=== PATIENT | male | born 1970 | race Caucasian/White ===

== ENCOUNTER 2021-11-29 17:49 | Emergency (ER) | payer OTHER, SELFPAY ==
[2021-11-29] VITALS (25 sets, daily range): BP systolic 120–169; BP diastolic 65–99; PULSE 77–100; RESP 12–35; TEMP 31–36.3; O2SAT 74–99; BMI 48.8
--- NOTE | 2021-11-29 18:04 | DI.RAD.S_ITS ---
PROCEDURE: XR CHEST 1V INDICATIONS: shortness of breath TECHNIQUE: One view of the chest was acquired. COMPARISON: None. FINDINGS: Surgical changes and devices: None. Lungs and pleura: Lungs are clear. Left-sided pleural fluid collection noted. Consolidation noted in the left lung base. Cephalization of pulmonary vasculature. Mediastinum: Mediastinal contours appear normal. Heart is enlarged. Bones and chest wall: No suspicious bony lesions. Overlying soft tissues appear unremarkable. IMPRESSION: 1. CHF. 2. Left-sided pleural effusion. 3. Left basilar consolidation which could represent atelectasis, aspiration or pneumonia. Dictated by: Kate Rosario MD, PhD on 11/29/2021 at 18:35 Approved by: Kate Rosario MD, PhD on 11/29/2021 at 18:37
--- NOTE | 2021-11-29 18:22 | DI.CT.S_ITS ---
PROCEDURE: CT ANGIO CHEST PE PROTOCOL INDICATIONS: soa TECHNIQUE: After the administration of intravenous contrast, 2 mm thick sections acquired from the pulmonary apices to the posterior costophrenic angles. 3-dimensional maximum intensity projection (MIP) coronal and sagittal reformats were then acquired through the thorax. For radiation dose reduction, the following was used: automated exposure control, adjustment of mA and/or kV according to patient size. COMPARISON: None. FINDINGS: Image quality: Limited by suboptimal contrast opacification of the segmental and subsegmental pulmonary arteries and patient body habitus. Pulmonary arteries: Pulmonary arteries are normal in size, and demonstrate no intraluminal filling defects to suggest central pulmonary embolism. Lungs and pleura: Moderate-sized left-sided pleural effusion. Trace right-sided pleural effusion. Consolidation noted in the left lung base which could represent atelectasis, aspiration or pneumonia. No pneumothorax. Central and peripheral airways are patent. Mediastinum: Heart is enlarged without pericardial effusion. Enlarged bilateral hilar and mediastinal lymph nodes are noted which could be reactive or neoplastic. Thoracic aorta is normal in caliber and enhancement. Esophagus is normal in caliber, without hiatal hernia. Bones and chest wall: No suspicious bony lesions. Ribs and thoracic spine appear intact throughout. Spine degenerative disc disease and facet arthropathy. Thyroid gland is within normal limits where visualized bilateral prominent mildly enlarged axillary lymph nodes noted. Abdomen: Visualized liver has slightly nodular margins suggesting hepatic cirrhosis. Ascites noted in the upper abdomen. IMPRESSION: 1. Diagnostic sensitivity study limited secondary to suboptimal contrast opacification of the segmental and subsegmental pulmonary arteries and patient body habitus. 2. No large central pulmonary embolus. Small pulmonary emboli involving the segmental and subsegmental pulmonary arteries is not excluded by this study. 3. Moderate-sized left-sided pleural fluid collection. Trace right-sided pleural fluid collection. 4. Consolidation left lung base which could represent atelectasis, aspiration or pneumonia. 5. Bilateral axillary, mediastinal and bilateral hilar lymphadenopathy which could be reactive or neoplastic including lymphoma and metastatic disease. 6. Sized liver has slightly nodular margins suggesting hepatic cirrhosis. Recommend correlation with clinical and laboratory data. 7. Ascites. 8. Cardiomegaly. Dictated by: Kate Rosario MD, PhD on 11/29/2021 at 19:23 Approved by: Kate Rosario MD, PhD on 11/29/2021 at 19:29
--- NOTE | 2021-11-29 18:23 | ED.SOB ---
HPI - SOB/Dyspnea General Chief Complaint: Shortness of Breath/Dyspnea Stated Complaint: hx rib fractures, short of breath Time Seen by Provider: 11/29/21 18:19 Source: patient Mode of arrival: Wheelchair Limitations: no limitations History of Present Illness HPI Narrative: Patient here for shortness of breath. He states he fell 2 or 3 weeks ago and was seen at facility at [place]. X-ray showed left-sided rib fracture. Denies any fever chills. Has increasing shortness of breath since then. Denies any heart or lung problems. Patient hypoxic on arrival. Improved with oxygen supplement. Decreased lung sounds lower 2/3 of the left lung. Related Data Allergies Allergy/AdvReac Type Severity Reaction Status Date / Time Tetanus Vaccines and Toxoid Allergy Verified 11/29/21 17:57 Review of Systems Review of Systems Narrative: GENERAL: Denies chills, fatigue, malaise, fever, sweats. HEENT: Denies sinus pain, ear pain, sore throat RESPIRATORY: Positive for dyspnea, cough CARDIOVASCULAR: Denies chest pain, palpitations GASTROINTESTINAL: Denies nausea, vomiting, abdominal pain : Denies dysuria, frequency, hematuria MUSCULOSKELETAL: denies muscle or bony pain SKIN: Denies rash, skin lesions NEUROLOGIC: Denies weakness, numbness ROS Unobtainable: All systems reviewed & are unremarkable except as noted in HPI and below Patient History Social History Smoking Status: Unknown if ever smoked Smoking Status: Unknown if ever smoked alcohol intake frequency: 3 or more drinks per day Substance Use Type: does not use Exam Narrative Exam Narrative: GENERAL: In mild distress. He is tachypneic. Moderate dyspnea. Speaking near full sentences. Patient very large body habitus HEAD: Normocephalic. EYES: Pupils equal round No scleral icterus. ENT: Mucous membranes moist. NECK: Trachea midline. CARDIOVASCULAR: Regular rate and rhythm without murmurs, tachycardic. RESPIRATORY: Patient in moderate respiratory distress. Feels better with supplemental oxygen. Respiratory therapy at bedside. Diminish lung sounds lower 2/3 of the left lung. Tender to touch left lateral lower ribs. GASTROINTESTINAL: Abdomen soft, non-tender EXTREMITIES: No gross deformities. BACK: No flank tenderness. NEURO: AOx4. SKIN: Warm and dry, improved color with supplemental oxygen. PSYCH: Not anxious, is cooperative Initial Vital Signs Initial Vital Signs: Vital Signs Temperature 97.3 F L 11/29/21 17:57 Pulse Rate 100 H 11/29/21 17:57 Respiratory Rate 30 H 11/29/21 17:57 Blood Pressure 120/99 H 11/29/21 17:57 Pulse Oximetry 74 L 11/29/21 17:57 Course Course Course Narrative: No new issues during course of stay. Patient improving with BiPAP with repeat ABGs. Orders Ordered: ED Orders 11/29/21 20:45 Arterial Blood Gas Stat 11/29/21 23:42 Urinalysis and Microscopic Stat 11/30/21 00:29 Arterial Blood Gas Stat Discontinued Medications Furosemide (Furosemide 40 Mg/4 Ml Vial) 40 mg IV NOW ONE Stop: 11/29/21 22:00 Last Admin: 11/29/21 22:19 Dose: 40 mg Documented by: FIDENCIO Sodium Chloride (Normal Saline 0.9%) 500 mls @ 1,000 mls/hr IV BOLUS ONE Stop: 11/30/21 01:58 Last Infusion: 11/30/21 02:05 Dose: 0 mls/hr Documented by: Admin: 11/30/21 01:31 Dose: 1,000 mls/hr Documented by: OLIVIA Lidocaine HCl (Lidocaine 2% (Glydo) 6 Ml Gel) 6 ml TOP NOW ONE Stop: 11/29/21 23:17 Last Admin: 11/29/21 23:50 Dose: 6 ml Documented by: FIDENCIO Nicotine (Nicotine 21 Mg Patch) 21 mg TOP NOW ONE Stop: 11/30/21 00:39 Last Admin: 11/30/21 00:56 Dose: 21 mg Documented by: OLIVIA Reevaluation(s) Reevaluation #1: Patient tolerating BiPAP. Is arousable. Understands for transfer. Time: 22:04 Reevaluation #2: Patient improving with mentation with BiPAP. Repeat ABGs improving. Consultations Consultation #1: Spoke with [facility] in [place] Dr Siddiqui, powerplant operator. He will accept patient to their ICU. He request to give patient Lasix 40 mg IV. Time: 22:04 Vital Signs Vital signs: Vital Signs - 8 hr 11/29/21 21:30 11/29/21 22:00 11/29/21 22:30 Pulse Rate 83 84 78 Respiratory Rate 25 H 35 H 27 H Blood Pressure Pulse Oximetry 96 95 96 11/29/21 22:33 11/29/21 22:41 11/29/21 22:43 Pulse Rate 78 78 Respiratory Rate 23 Blood Pressure 134/85 122/73 122/73 Pulse Oximetry 96 11/29/21 23:00 11/29/21 23:30 11/29/21 23:43 Pulse Rate 80 83 81 Respiratory Rate 25 H 20 20 Blood Pressure 124/65 Pulse Oximetry 96 94 94 11/30/21 00:00 11/30/21 00:30 11/30/21 00:40 Pulse Rate 78 78 Respiratory Rate 20 21 Blood Pressure 113/68 118/65 118/65 Pulse Oximetry 97 97 11/30/21 01:00 11/30/21 01:30 11/30/21 02:00 Pulse Rate 78 77 78 Respiratory Rate 20 24 22 Blood Pressure 113/64 113/58 L Pulse Oximetry 97 98 97 MDM - SOB/Dyspnea Differential Diagnosis Differential diagnosis: Likely congestive heart failure, community acquired pneumonia, pulmonary embolism and other (Pleural effusion/pneumonia/pneumothorax) Lab Data Result diagrams: 11/29/21 18:15 11/29/21 18:15 Labs: Lab Results 11/29/21 11/29/21 11/29/21 Range/Units 18:09 18:15 18:15 WBC 10.8 (4.5-11.0) X10^3/uL RBC 5.63 (4.5-5.9) X10^6/uL Hgb 17.7 H (13.5-17.5) g/dL Hct 55.6 H (41-53) % MCV 98.7 (80-100) fL MCH 31.5 (26-34) PG MCHC 31.9 (30-36) % RDW 15.7 H (11.6-14.8) % Plt Count 178 (150-400) X10^3/uL Neut % (Auto) 58.4 (50-75) % Lymph % (Auto) 32.5 (25-40) % [place] % (Auto) 8.4 (3-14) % Eos % (Auto) 0.2 L (2-4) % Baso % (Auto) 0.5 (0-2) % Neut # (Auto) 6300 (3411-4590) /uL Lymph # (Auto) 3500 (8113-1360) /uL [place] # (Auto) 900 (0-900) /uL Eos # (Auto) 0 (0-450) /uL Baso # (Auto) 0 (0-100) /uL PT 14.5 H (10.1-12.7) SECONDS INR 1.3 (0.9-1.3) ABG pH (7.35-7.45) ABG pCO2 (35-45) mmHg ABG pO2 (80-100) mmHg ABG HCO3 (22-26) mmol/L ABG Total CO2 (21-31) mmol/L ABG O2 Saturation (95-100) % ABG Base Excess (-2-2) mmol/L FiO2 Sodium (137-145) mmol/L Potassium (3.4-5.1) mmol/L Chloride (98-107) mmol/L Carbon Dioxide (22-32) mmol/L BUN (9-20) mg/dL Creatinine (0.66-1.25) mg/dL Estimated GFR (>60) mL/min BUN/Creatinine Ratio (6-22) Glucose (70-100) mg/dL Lactate (0.7-2.1) mmol/L Calcium (8.4-10.2) mg/dL Total Bilirubin (0.2-1.3) mg/dL AST (17-59) IU/L ALT (<50) IU/L Alkaline Phosphatase (38-126) U/L Troponin I (0.01-0.034) ng/mL NT-Pro-B Natriuret Pep (<125) pg/mL Total Protein (6.3-8.2) g/dL Albumin (3.5-5.0) g/dL Globulin (1.7-4.1) g/dL Albumin/Globulin Ratio (1.0-2.8) Urine Color Urine Appearance Urine pH (4.5-8.0) Ur Specific [place] (1.000-1.035) Urine Protein (Negative) Urine Glucose (UA) (Negative) g/dL Urine Ketones (NEGATIVE) Urine Occult Blood (Negative) Urine Nitrate (Negative) Urine Bilirubin (NEGATIVE) Urine Urobilinogen (0.2) E.U./dL Ur Leukocyte Esterase (NEGATIVE) Urine RBC (0-5/HPF) Urine WBC (0-5/HPF) Ur Squamous Epith Cells (0-5/HPF) Urine Bacteria (None) Hyaline Casts (None) Urine Mucus (Negative) Ur Culture Indicated? SARS-CoV-2 (PCR) Negative (Negative) 11/29/21 11/29/21 11/29/21 Range/Units 18:15 18:15 18:15 WBC (4.5-11.0) X10^3/uL RBC (4.5-5.9) X10^6/uL Hgb (13.5-17.5) g/dL Hct (41-53) % MCV (80-100) fL MCH (26-34) PG MCHC (30-36) % RDW (11.6-14.8) % Plt Count (150-400) X10^3/uL Neut % (Auto) (50-75) % Lymph % (Auto) (25-40) % [place] % (Auto) (3-14) % Eos % (Auto) (2-4) % Baso % (Auto) (0-2) % Neut # (Auto) (5635-7482) /uL Lymph # (Auto) (5534-3297) /uL [place] # (Auto) (0-900) /uL Eos # (Auto) (0-450) /uL Baso # (Auto) (0-100) /uL PT (10.1-12.7) SECONDS INR (0.9-1.3) ABG pH (7.35-7.45) ABG pCO2 (35-45) mmHg ABG pO2 (80-100) mmHg ABG HCO3 (22-26) mmol/L ABG Total CO2 (21-31) mmol/L ABG O2 Saturation (95-100) % ABG Base Excess (-2-2) mmol/L FiO2 Sodium 133 L (137-145) mmol/L Potassium 5.6 H (3.4-5.1) mmol/L Chloride 93 L (98-107) mmol/L Carbon Dioxide 33 H (22-32) mmol/L BUN 87 H (9-20) mg/dL Creatinine 3.74 H (0.66-1.25) mg/dL Estimated GFR 17.2 L (>60) mL/min BUN/Creatinine Ratio 23.3 H (6-22) Glucose 172 H (70-100) mg/dL Lactate 1.7 (0.7-2.1) mmol/L Calcium 8.4 (8.4-10.2) mg/dL Total Bilirubin 1.0 (0.2-1.3) mg/dL AST 86 H (17-59) IU/L ALT 102 H (<50) IU/L Alkaline Phosphatase 100 (38-126) U/L Troponin I 0.048 H (0.01-0.034) ng/mL NT-Pro-B Natriuret Pep 4110 H (<125) pg/mL Total Protein 7.7 (6.3-8.2) g/dL Albumin 4.2 (3.5-5.0) g/dL Globulin 3.5 (1.7-4.1) g/dL Albumin/Globulin Ratio 1.2 (1.0-2.8) Urine Color Urine Appearance Urine pH (4.5-8.0) Ur Specific [place] (1.000-1.035) Urine Protein (Negative) Urine Glucose (UA) (Negative) g/dL Urine Ketones (NEGATIVE) Urine Occult Blood (Negative) Urine Nitrate (Negative) Urine Bilirubin (NEGATIVE) Urine Urobilinogen (0.2) E.U./dL Ur Leukocyte Esterase (NEGATIVE) Urine RBC (0-5/HPF) Urine WBC (0-5/HPF) Ur Squamous Epith Cells (0-5/HPF) Urine Bacteria (None) Hyaline Casts (None) Urine Mucus (Negative) Ur Culture Indicated? SARS-CoV-2 (PCR) (Negative) 11/29/21 11/29/21 11/29/21 Range/Units 18:38 20:45 23:42 WBC (4.5-11.0) X10^3/uL RBC (4.5-5.9) X10^6/uL Hgb (13.5-17.5) g/dL Hct (41-53) % MCV (80-100) fL MCH (26-34) PG MCHC (30-36) % RDW (11.6-14.8) % Plt Count (150-400) X10^3/uL Neut % (Auto) (50-75) % Lymph % (Auto) (25-40) % [place] % (Auto) (3-14) % Eos % (Auto) (2-4) % Baso % (Auto) (0-2) % Neut # (Auto) (3401-5713) /uL Lymph # (Auto) (5469-0926) /uL [place] # (Auto) (0-900) /uL Eos # (Auto) (0-450) /uL Baso # (Auto) (0-100) /uL PT (10.1-12.7) SECONDS INR (0.9-1.3) ABG pH 7.18 L* 7.21 L* (7.35-7.45) ABG pCO2 86.0 H* 82.9 H* (35-45) mmHg ABG pO2 86 87 (80-100) mmHg ABG HCO3 32 H 33 H (22-26) mmol/L ABG Total CO2 35 H 36 H (21-31) mmol/L ABG O2 Saturation 93 L 94 L (95-100) % ABG Base Excess 4.0 H 6.0 H (-2-2) mmol/L FiO2 50 50 Sodium (137-145) mmol/L Potassium (3.4-5.1) mmol/L Chloride (98-107) mmol/L Carbon Dioxide (22-32) mmol/L BUN (9-20) mg/dL Creatinine (0.66-1.25) mg/dL Estimated GFR (>60) mL/min BUN/Creatinine Ratio (6-22) Glucose (70-100) mg/dL Lactate (0.7-2.1) mmol/L Calcium (8.4-10.2) mg/dL Total Bilirubin (0.2-1.3) mg/dL AST (17-59) IU/L ALT (<50) IU/L Alkaline Phosphatase (38-126) U/L Troponin I (0.01-0.034) ng/mL NT-Pro-B Natriuret Pep (<125) pg/mL Total Protein (6.3-8.2) g/dL Albumin (3.5-5.0) g/dL Globulin (1.7-4.1) g/dL Albumin/Globulin Ratio (1.0-2.8) Urine Color Yellow Urine Appearance Clear Urine pH 5.0 (4.5-8.0) Ur Specific [place] 1.025 (1.000-1.035) Urine Protein 1+ H (Negative) Urine Glucose (UA) Trace H (Negative) g/dL Urine Ketones Negative (NEGATIVE) Urine Occult Blood 3+ H (Negative) Urine Nitrate Negative (Negative) Urine Bilirubin Negative (NEGATIVE) Urine Urobilinogen 1.0 (0.2) E.U./dL Ur Leukocyte Esterase Negative (NEGATIVE) Urine RBC 10-30/hpf H (0-5/HPF) Urine WBC 0-1/hpf (0-5/HPF) Ur Squamous Epith Cells 1-5 /hpf (0-5/HPF) Urine Bacteria Few (2-10) H (None) Hyaline Casts 0-1/lpf (None) Urine Mucus 1+ H (Negative) Ur Culture Indicated? Cult not indicated SARS-CoV-2 (PCR) (Negative) 11/30/21 Range/Units 00:29 WBC (4.5-11.0) X10^3/uL RBC (4.5-5.9) X10^6/uL Hgb (13.5-17.5) g/dL Hct (41-53) % MCV (80-100) fL MCH (26-34) PG MCHC (30-36) % RDW (11.6-14.8) % Plt Count (150-400) X10^3/uL Neut % (Auto) (50-75) % Lymph % (Auto) (25-40) % [place] % (Auto) (3-14) % Eos % (Auto) (2-4) % Baso % (Auto) (0-2) % Neut # (Auto) (6047-6259) /uL Lymph # (Auto) (6030-2228) /uL [place] # (Auto) (0-900) /uL Eos # (Auto) (0-450) /uL Baso # (Auto) (0-100) /uL PT (10.1-12.7) SECONDS INR (0.9-1.3) ABG pH 7.26 L* (7.35-7.45) ABG pCO2 75.3 H* (35-45) mmHg ABG pO2 85 (80-100) mmHg ABG HCO3 34 H (22-26) mmol/L ABG Total CO2 36 H (21-31) mmol/L ABG O2 Saturation 94 L (95-100) % ABG Base Excess 7.0 H (-2-2) mmol/L FiO2 50 Sodium (137-145) mmol/L Potassium (3.4-5.1) mmol/L Chloride (98-107) mmol/L Carbon Dioxide (22-32) mmol/L BUN (9-20) mg/dL Creatinine (0.66-1.25) mg/dL Estimated GFR (>60) mL/min BUN/Creatinine Ratio (6-22) Glucose (70-100) mg/dL Lactate (0.7-2.1) mmol/L Calcium (8.4-10.2) mg/dL Total Bilirubin (0.2-1.3) mg/dL AST (17-59) IU/L ALT (<50) IU/L Alkaline Phosphatase (38-126) U/L Troponin I (0.01-0.034) ng/mL NT-Pro-B Natriuret Pep (<125) pg/mL Total Protein (6.3-8.2) g/dL Albumin (3.5-5.0) g/dL Globulin (1.7-4.1) g/dL Albumin/Globulin Ratio (1.0-2.8) Urine Color Urine Appearance Urine pH (4.5-8.0) Ur Specific [place] (1.000-1.035) Urine Protein (Negative) Urine Glucose (UA) (Negative) g/dL Urine Ketones (NEGATIVE) Urine Occult Blood (Negative) Urine Nitrate (Negative) Urine Bilirubin (NEGATIVE) Urine Urobilinogen (0.2) E.U./dL Ur Leukocyte Esterase (NEGATIVE) Urine RBC (0-5/HPF) Urine WBC (0-5/HPF) Ur Squamous Epith Cells (0-5/HPF) Urine Bacteria (None) Hyaline Casts (None) Urine Mucus (Negative) Ur Culture Indicated? SARS-CoV-2 (PCR) (Negative) Imaging Data Chest x-ray: Radiologist's Impression: [address] [address] XRay Report Signed Patient: Corby Scott MR#: [id number] : 1970 Acct:[id number] Age/Sex: 51 / M Date of Service: 11/29/21 Loc: ED Accession Number: [id number] ?? Procedure: XR chest 1V Ordering Provider: Sahara Crowley D.O. PROCEDURE:? XR CHEST 1V ? INDICATIONS:? shortness of breath ? TECHNIQUE:? One view of the chest was acquired.? ? COMPARISON:? None. ? FINDINGS:? ? Surgical changes and devices:? None.? ? Lungs and pleura:? Lungs are clear.? Left-sided pleural fluid collection noted.? Consolidation noted in the left lung base.? Cephalization of pulmonary vasculature. ? Mediastinum:? Mediastinal contours appear normal.? Heart is enlarged. ? Bones and chest wall:? No suspicious bony lesions.? Overlying soft tissues appear unremarkable.? ? ? IMPRESSION:? ? 1. CHF. ? 2. Left-sided pleural effusion. ? 3. Left basilar consolidation which could represent atelectasis, aspiration or pneumonia. ? ? ? Dictated by: Kate Rosario MD, PhD on 11/29/2021 at 18:35 ? ? Approved by: Kate Rosario MD, PhD on 11/29/2021 at 18:37 ? CT scan - chest: Radiologist's Impression: [place] [address] CT Scan Report Signed Patient: Corby Scott MR#: [id number] : 1970 Acct:[id number] Age/Sex: 51 / M Date of Service: 11/29/21 Loc: ED Accession Number: [id number] ?? Procedure: CT angio chest PE protocol Ordering Provider: Ever Gill MD PROCEDURE:? CT ANGIO CHEST PE PROTOCOL ? INDICATIONS:? soa ? TECHNIQUE:? After the administration of intravenous contrast, 2 mm thick sections acquired from the pulmonary apices to the posterior costophrenic angles.? 3-dimensional maximum intensity projection (MIP) coronal and sagittal reformats were then acquired through the thorax.? For radiation dose reduction, the following was used:? automated exposure control, adjustment of mA and/or kV according to patient size.? ? COMPARISON:? None. ? FINDINGS:? Image quality:? Limited by suboptimal contrast opacification of the segmental and subsegmental pulmonary arteries and patient body habitus. ? Pulmonary arteries:? Pulmonary arteries are normal in size, and demonstrate no intraluminal filling defects to suggest central pulmonary embolism.? ? Lungs and pleura:? Moderate-sized left-sided pleural effusion.? Trace right-sided pleural effusion.? Consolidation noted in the left lung base which could represent atelectasis, aspiration or pneumonia.? No pneumothorax.? Central and peripheral airways are patent.? ? Mediastinum:? Heart is enlarged without pericardial effusion.? Enlarged bilateral hilar and mediastinal lymph nodes are noted which could be reactive or neoplastic.? Thoracic aorta is normal in caliber and enhancement.? Esophagus is normal in caliber, without hiatal hernia.? ? Bones and chest wall:? No suspicious bony lesions.? Ribs and thoracic spine appear intact throughout. Spine degenerative disc disease and facet arthropathy. Thyroid gland is within normal limits where visualized bilateral prominent mildly enlarged axillary lymph nodes noted. ? Abdomen:? Visualized liver has slightly nodular margins suggesting hepatic cirrhosis.? Ascites noted in the upper abdomen. ? IMPRESSION:? ? 1. Diagnostic sensitivity study limited secondary to suboptimal contrast opacification of the segmental and subsegmental pulmonary arteries and patient body habitus. ? 2. No large central pulmonary embolus.? Small pulmonary emboli involving the segmental and subsegmental pulmonary arteries is not excluded by this study. ? 3. Moderate-sized left-sided pleural fluid collection.? Trace right-sided pleural fluid collection. ? 4. Consolidation left lung base which could represent atelectasis, aspiration or pneumonia. ? 5. Bilateral axillary, mediastinal and bilateral hilar lymphadenopathy which could be reactive or neoplastic including lymphoma and metastatic disease. ? 6. Sized liver has slightly nodular margins suggesting hepatic cirrhosis.? Recommend correlation with clinical and laboratory data. ? 7. Ascites. ? 8. Cardiomegaly. ? ? Dictated by: Kate Rosario MD, PhD on 11/29/2021 at 19:23 ? ? Approved by: Kate Rosario MD, PhD on 11/29/2021 at 19:29 ? ECG Data Interpretation: Normal sinus rhythm rate [address] elevation or depression. Incomplete right bundle-branch block. MDM Narrative Medical decision making narrative: Appropriate for transfer. Patient needs higher level care including Nephrology and Cardiology and ICU services. We do not have Nephrology here. Patient understands. Agrees for transfer. Critical Care Time Critical Care Time Attestation: Critical Care Time 35 minutes: Critical care time is separate from other billable procedures. This critical care time includes consultation with family and other consulting doctors, review of records, and interpretation of data from labs, EKGs, imaging, etc. Discharge Plan Departure Patient Disposition: [facility] Clinical Impression: Respiratory failure, Congestive heart failure, Acute kidney injury
[2021-11-29 18:37] LABS: Add Manual Diff / Slide Review NO; Basophils Absolute Auto 0 /uL (0-100); Basophils Percent Auto 0.5 % (0-2); Eosinophils Absolute Auto 0 /uL (0-450); Eosinophils Percent Auto 0.2 % (2-4); Hematocrit 55.6 % (41-53); Hemoglobin 17.7 g/dL (13.5-17.5); Lymphocytes Absolute Auto 3500 /uL (1100-4500); Lymphocytes Percent Auto 32.5 % (25-40); Mean Corpuscular HGB Conc 31.9 % (30-36); Mean Corpuscular Hemoglobin 31.5 PG (26-34); Mean Corpuscular Volume 98.7 fL (80-100); Monocytes Absolute Auto 900 /uL (0-900); Monocytes Percent Auto 8.4 % (3-14); Neutrophils Absolute Auto 6300 /uL (1500-7000); Neutrophils Percent Auto 58.4 % (50-75); Platelet Count 178 X10^3/uL (150-400); Red Blood Cell Count 5.63 X10^6/uL (4.5-5.9); Red Cell Distribution Width 15.7 % (11.6-14.8); White Blood Cell Count 10.8 X10^3/uL (4.5-11.0)
[2021-11-29 18:42] LABS: COVID19 -Nasal RAPID Negative (Negative)
[2021-11-29 18:50] LABS: INR 1.3 (0.9-1.3); Prothrombin Time 14.5 SECONDS (10.1-12.7)
[2021-11-29 18:54] LABS: Lactate (Lactic Acid) 1.7 mmol/L (0.7-2.1)
[2021-11-29 19:02] LABS: NT-proBNP (BNP-Adult 18+) 4110 pg/mL (<125)
[2021-11-29 19:03] LABS: pH ABG 7.18 (7.35-7.45)
[2021-11-29 19:04] LABS: Fractionated Inspired Oxygen 50; HCO3 ABG 32 mmol/L (22-26); Oxygen Saturation ABG 93 % (95-100); PO2 ABG 86 mmHg (80-100); TCO2 ABG 35 mmol/L (21-31)
[2021-11-29 19:09] LABS: Alanine Aminotransferase 102 IU/L (<50); Albumin 4.2 g/dL (3.5-5.0); Albumin Globulin Ratio 1.2 (1.0-2.8); Alkaline Phosphatase 100 U/L (38-126); Aspartate Aminotransferase 86 IU/L (17-59); BUN Creatinine Ratio 23.3 (6-22); Blood Urea Nitrogen 87 mg/dL (9-20); Calcium 8.4 mg/dL (8.4-10.2); Carbon Dioxide 33 mmol/L (22-32); Chloride 93 mmol/L (98-107); Estimated Glomerular Filt Rate 17.2 mL/min (>60); Globulin 3.5 g/dL (1.7-4.1); Glucose 172 mg/dL (70-100); HEMOLYSIS 30 (0-50); Sodium 133 mmol/L (137-145); Total Protein 7.7 g/dL (6.3-8.2)
[2021-11-29 19:10] LABS: Potassium 5.6 mmol/L (3.4-5.1)
[2021-11-29 20:56] LABS: PCO2 ABG 82.9 mmHg (35-45)
[2021-11-29 20:57] LABS: Fractionated Inspired Oxygen 50; HCO3 ABG 33 mmol/L (22-26); Oxygen Saturation ABG 94 % (95-100); PO2 ABG 87 mmHg (80-100); TCO2 ABG 36 mmol/L (21-31)
--- NOTE | 2021-11-29 21:12 | PC.NURSE ---
2030 - Patient pulling off BiPAP mask. Assisted patient with repositioning mask, but he kept pulling it off. Gave patient education on importance of the mask. Patient demonstrates understanding, but continuing to not allow nurse to place BiPAP. Attempted to reorient patient and repeat education. Patient appears confused, having difficulty answering questions about location (first stating he is in [place]), time, and situation. Repeated questioning asking about what is going on? Patient's oxygen down to 86% and he then allowed for BiPAP to be placed again. Repositioned patient and dimmed lighting for comfort.
[2021-11-29 21:18] LABS: pH ABG 7.21 (7.35-7.45)
--- NOTE | 2021-11-29 22:15 | PC.NURSE ---
Patient repeatedly pulling BIPAP mask off. Reoriented patient, gave patient education and placed BIPAP mask back on patient.
[2021-11-29] MEDS: FUROSEMIDE 40 MG/4 ML VIAL IV (22:19)
[2021-11-29 22:21] LABS: Troponin I 0.048 ng/mL (0.01-0.034)
[2021-11-29 23:50] LABS: Appearance Urine UA CLEAR; Bilirubin Urine UA NEGATIVE (NEGATIVE); Color Urine UA YELLOW; Glucose Urine UA TRACE g/dL (Negative); Ketones Urine UA NEGATIVE (NEGATIVE); Leukocyte Esterase Urine UA NEGATIVE (NEGATIVE); Nitrite Urine UA NEGATIVE (Negative); Occult Blood Urine UA 3+ (Negative); Protein Urine UA 1+ (Negative); Specific Gravity Urine UA 1.025 (1.000-1.035)
[2021-11-29] MEDS: LIDOCAINE 2% (GLYDO) 6 ML GEL TOP (23:50)
[2021-11-29 23:55] LABS: RBC Urine 10-30/HPF (0-5/HPF)
[2021-11-29 23:56] LABS: Bacteria Urine Few (2-10); Hyaline Casts Urine 0-1/LPF; Squamous Epithelial Cell Urine 1-5 /HPF (0-5/HPF); WBC Urine 0-1/HPF (0-5/HPF)
[2021-11-29 23:57] LABS: Culture Indicated Urine Cult Not Indicated; Mucus Urine 1+ (Negative)
[2021-11-30] VITALS: BP 113/68; PULSE 78; RESP 20; O2SAT 97
[2021-11-30 00:30] VITALS: BP 118/65; PULSE 78; RESP 21; O2SAT 97
[2021-11-30 00:40] VITALS: BP 118/65; PULSE 78; RESP 22; O2SAT 98
[2021-11-30 00:53] LABS: Fractionated Inspired Oxygen 50; HCO3 ABG 34 mmol/L (22-26); Oxygen Saturation ABG 94 % (95-100); PCO2 ABG 75.3 mmHg (35-45); PO2 ABG 85 mmHg (80-100); TCO2 ABG 36 mmol/L (21-31); pH ABG 7.26 (7.35-7.45)
[2021-11-30] MEDS: NICOTINE 21 MG PATCH TOP (00:56)
[2021-11-30 01:00] VITALS: BP 113/64; PULSE 78; RESP 20; O2SAT 97
[2021-11-30 01:30] VITALS: BP 113/58; PULSE 77; RESP 24; O2SAT 98
[2021-11-30] MEDS: SODIUM CHLORIDE 0.9% 500 ML 1000 ML IV (01:31)
[2021-11-30 02:00] VITALS: PULSE 78; RESP 22; O2SAT 97
== END 2021-11-30 02:24 | disposition short-term general hospital (02) ==
PROVIDERS: Emergency Medicine; Emergency Provider Emergency Medicine
DX: J96.91 Respiratory failure, unspecified with hypoxia (principal); I50.9 Heart failure, unspecified; N17.9 Acute kidney failure, unspecified; I45.10 Unspecified right bundle-branch block; Z20.822 Contact with and (suspected) exposure to COVID-19
CPT/HCPCS: 36415; 36600; 71045; 71275; 80053; 81001; 82805; 83605; 83880; 84484; 85025; 85610; 87635; 93005; 94660; 96361; 96374; 99284; 99291; 99292; C9803; J1940; Q9967